=== PATIENT | female | born 1990 | race Two or more races ===

== ENCOUNTER → 2017-04-15 | Outpatient (CLI) | payer OTHER | LOC: BMCIMAGING 11:29 | PROVIDERS: ATTEND Family Medicine | DX: M54.5 Low back pain (principal) ==

== ENCOUNTER 2017-08-08 21:59 | Emergency (ER) | payer MEDICAID, OTHER ==
--- NOTE | 2017-08-08 22:46 | CPEKG ---
Heart Rate: 74 RR Interval: 811 P-R Interval: 132 QRSD Interval: 68 QT Interval: 360 QTC Interval: 400 P [place]: 48 QRS [place]: 48 T Wave [place]: 32 EKG Severity - ABNORMAL ECG - EKG Impression: SINUS RHYTHM EKG Impression: ST ELEVATION SUGGESTS PERICARDITIS Electronically Signed By: Larry Lal 08-Aug-2017 23:54:56
[2017-08-08 23:05] LABS: PLATELET COUNT 219 10^3/uL (150-400)
--- NOTE | 2017-08-08 23:09 | EDPHY ---
H & P Time Seen by Provider: 08/08/17 22:26 HPI/ROS: Chief complaint. Chest pain HPI. Patient 27-year-old female with left anterior chest discomfort for 2 months that. She feels that is likely muscular. Today however she had tightness across her chest. No radiation through to her back. Slight cough but no fever. Symptoms are better with deep breathing. Not worse with exertion , breathing, position. No abdominal pain. No unusual leg pain or swelling. ROS Constitutional. no fever/chills, no weakness Eyes. no problems with vision ENT. no sore throat, no nasal drainage Cardiovascular. Chest pain Respiratory. no shortness of breath, no cough Abdominal. no abdominal pain, no nausea/vomiting, no diarrhea . no problems urinating MS. no calf pain/swelling, no neck/back pain, no joint pain Skin. no rash Lymph. no swollen glands Neuro. no headache, no dizziness, no difficulty walking or with speech Past Medical/Surgical History: Social History: Single, nonsmoker, no alcohol Smoking Status: Never smoked Physical Exam: General Appearance: Alert well-developed female mild distress vital signs are stable. Eyes: Pupils equal and round no pallor or injection. ENT, Mouth: Mucous membranes are moist. Respiratory: There are no retractions, lungs are clear to auscultation. Cardiovascular: Regular rate and rhythm. Gastrointestinal: Abdomen is soft and nontender, no masses, bowel sounds normal. Neurological: Awake and alert, sensory and motor exams grossly normal. Skin: Warm and dry, no rashes. Musculoskeletal: Neck is supple nontender. Extremities symmetrical, full range of motion. Psychiatric: Patient is oriented X 3, there is no agitation. Constitutional: Initial Vital Signs Temperature (C) 37.2 C 08/08/17 22:11 Heart Rate 86 08/08/17 22:11 Respiratory Rate 18 08/08/17 22:11 Blood Pressure 125/89 H 08/08/17 22:11 O2 Sat (%) 99 08/08/17 22:11 O2 Delivery Mode Room Air Allergies/Adverse Reactions: No Known Allergies Allergy (Verified 08/08/17 22:14) Home Medications: Medication Instructions Recorded Nexplanon 08/08/17 Medical Decision Making - Diagnostics EKG Interpretation: EKG interpreted by me shows normal sinus rhythm normal interval and axis. QRS is normal there is no significant ST elevation or depression. No arrhythmia. The rate is 75 Imaging Results: Chest x-ray interpreted by me is normal Procedures: IV normal saline, monitor IV Toradol ED Course/Re-evaluation: Re-evaluation 11:50 p.m.. Patient and I discussed imaging lab EKG findings. We discussed treatment plan including criteria for return importance of follow- up and further evaluation. She expresses understanding and agreement Differential Diagnosis: I considered acute coronary syndrome, pneumothorax, pulmonary embolus, pneumonia. Workup is normal. Patient is had some chest pain symptoms for 2 months. More precordial today. No acute findings - Data Points Laboratory Results: Laboratory Results 08/08/17 22:55 08/08/17 22:55 Medications Given: Discontinued Medications Ketorolac Tromethamine (Toradol) 30 mg IVP EDNOW ONE Stop: 08/08/17 23:12 Last Admin: 08/08/17 23:15 Dose: 30 mg Departure - Departure Disposition: Home, Routine, Self-Care Clinical Impression: Chest pain Qualifiers: Chest pain type: unspecified Qualified Code(s): R07.9 - Chest pain, unspecified Condition: Good Instructions: Chest Pain (ED) Additional Instructions: Ibuprofen 600 mg every 6 hr for chest discomfort. Activity as tolerated. Return for worsening symptoms. Follow up with your regular physician in the next 2-3 days Referrals: Chelsy Kruse MD [Primary Care Provider] - 2-3 days without fail
[2017-08-08] MEDS ORDERED: KETOROLAC 30 MG/1 ML SDV IVP ONE (23:11)
[2017-08-09 00:27] VITALS: BP 95/55
== END 2017-08-09 00:26 | disposition home or self-care (01) ==
DX: R07.9 Chest pain, unspecified (principal)
CPT/HCPCS: 96374; J1885

== ENCOUNTER → 2017-12-16 | Outpatient (CLI) | payer OTHER | LOC: BMCIMAGING 16:03 | PROVIDERS: ATTEND Family Medicine | DX: S62.396A Other fracture of fifth metacarpal bone, right hand, initial encounter for closed fracture (principal) ==

== ENCOUNTER → 2018-02-01 | Outpatient (CLI) | payer OTHER | LOC: BMCIMAGING 16:08 | PROVIDERS: ATTEND Orthopaedic Surgery Hand Surgery | DX: S62.326D Displaced fracture of shaft of fifth metacarpal bone, right hand, subsequent encounter for fracture with routine healing (principal) ==

== ENCOUNTER → 2018-03-15 | Outpatient (CLI) | payer OTHER | LOC: BMCIMAGING 08:13 | PROVIDERS: ATTEND Orthopaedic Surgery Hand Surgery | DX: S62.326D Displaced fracture of shaft of fifth metacarpal bone, right hand, subsequent encounter for fracture with routine healing (principal) ==